=== PATIENT | female | born 1950 | race Caucasian/White ===

== ENCOUNTER 2020-09-17 10:10 | Outpatient (CLI) | payer MEDICARE, OTHER | END 2020-09-17 10:11 | disposition home or self-care (01) | LOC: NAV RAD 10:10 | PROVIDERS: ATTEND Family Medicine | DX: R10.31 Right lower quadrant pain (principal); R19.8 Other specified symptoms and signs involving the digestive system and abdomen | CPT/HCPCS: 74018 ==